=== PATIENT | female | born 1990 | race Caucasian/White ===

== ENCOUNTER 2024-08-24 18:29 | Emergency (ER) | payer BC, SELFPAY ==
[2024-08-24] VITALS (16 sets, daily range): BP systolic 114–126; BP diastolic 63–80; PULSE 75–76; RESP 16; TEMP 36.7–37.2; O2SAT 98–100
--- OUTSIDE RECORDS SUMMARY | 2024-08-24 18:31 | XMS_ITS | Clinical Summary ---
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 Gender Identity Not on file Sexual Orientation Not on file Plan of Treatment Health Maintenance Due Date Last Done Comments Cervical Cancer Screening Pa p Smear (Age 30 to 64) Every 3 Years 1989 Annual Physical 1992 Hepatitis C 09/01/2007 DTaP, Tdap and Td Vaccines ( 1 - Tdap) 2008 Hepatitis B Vaccines (1 of 3 - 19+ 3-dose series) 2008 Cervical Cancer Screening Pa p with HPV Testing (Age 30 to 64) Every 5 Years 09/01/2019 Cervical Cancer Screening with HPV 09/01/2019 COVID-19 Vaccine (2023-2 5 season) 2023 HPV Vaccines Aged Out No longer eligi ble based on patient's age to complete this topic Meningococcal B Vaccine Aged Out No l onger eligible based on patient's age to complete this topic Meningococcal Vaccine Aged Out No doug kim eligible based on patient's age to complete this topic Pneumococcal Vaccine: Pediat rics (0 to 5 Years) and At-Risk Patients (6 to 49 Years) Aged Out No longer eligible b ased on patient's age to complete this topic RSV Immunizations Under 20 Months Aged Out No longer eligible based on patient's age to complete this topic
--- OUTSIDE RECORDS SUMMARY | 2024-08-24 18:31 | XMS_ITS | Encounter Summary ---
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
--- NOTE | 2024-08-24 18:47 | ED_ITS ---
HPI - General Adult General Chief complaint: Headache Stated complaint: migraine Time Seen by Provider: 08/24/24 18:40 History of Present Illness HPI narrative: Patient 33-year-old female presents emergency department chief complaint of migraine. The patient reports that she is approximately 8 weeks normally takes sumatriptan and reports she has been having nausea vomiting photophobia and increased pain with sounds the patient states that she called the OB senior construction project manager who said that she could only take Tylenol and reports that this is 1 of the worst headache she has ever had the patient reports that she has no focal neurological deficits reports this is not the worst headache of her life but it is one of her more severe ones Related Data Allergies Allergy/AdvReac Type Severity Reaction Status Date / Time No Known Allergies Allergy Unknown Unverified 12/26/06 19:31 Review of Systems Review of Systems: A 10 system review of systems was completed on the patient and is negative except for what is stated in the HPI. Nursing and ancillary documentation was reviewed. Exam Narrative: GENERAL: Well-appearing, well-nourished, and in no moderate acute pain distress. HEAD: Normocephalic, atraumatic. EYES: PERRLA and EOMI. ENT: Nares clear, no rhinorrhea or epistaxis. Mucous membranes moist. NECK: Supple. CHEST: Clear to auscultation. No respiratory distress. HEART: Regular rate and rhythm. No murmur heard. Normal peripheral pulses. ABDOMEN: Soft, nontender, nondistended, normal active bowel sounds. EXTREMITIES: Normal range of motion. No edema. SKIN: Warm, dry, no rash. NEURO: No focal deficits. Alert and oriented x3. PSYCH: Normal mood and affect. Course Vital Signs Vital signs: Vital Signs Temperature 37.2 C 08/24/24 18:34 Pulse Rate 75 08/24/24 18:34 Respiratory Rate 16 08/24/24 18:34 Blood Pressure 126/80 08/24/24 18:34 Pulse Oximetry 100 08/24/24 18:34 Temperature 37.2 C 08/24/24 18:34 Pulse Rate 75 08/24/24 18:34 Respiratory Rate 16 08/24/24 18:34 Blood Pressure 126/80 08/24/24 18:34 Pulse Oximetry 100 08/24/24 18:34 Medical Decision Making Vital Signs Vital Signs: Vital Signs Temperature 37.2 C 08/24/24 18:34 Pulse Rate 75 08/24/24 18:34 Respiratory Rate 16 08/24/24 18:34 Blood Pressure 126/80 08/24/24 18:34 Pulse Oximetry 100 08/24/24 18:34 Temperature 37.2 C 08/24/24 18:34 Pulse Rate 75 08/24/24 18:34 Respiratory Rate 16 08/24/24 18:34 Blood Pressure 126/80 08/24/24 18:34 Pulse Oximetry 100 08/24/24 18:34 Discharge Plan Discharge Clinical Impression: Headache Patient Disposition: Home Condition: Stable Instructions: Antibiotic Form, Acute Headache (ED) Patient Language: Armenian Follow-up/Referrals: UNKNOWN,DOCTOR [Primary Care Provider] - Time of Disposition: 19:44
[2024-08-24] MEDS: SODIUM CHLORIDE 0.9% IV 1,000 ML 999 ML IV CONT (18:58)
[2024-08-24] MEDS: dexAMETHasone SOD PHOS INJ 10 MG/ML 1 ML VIAL IV PUSH (19:02)
[2024-08-24] MEDS: METOCLOPRAMIDE HCL INJ 10 MG/2 ML VIAL IV PUSH (19:04)
[2024-08-24] MEDS: MAGNESIUM SULF 1 GM/D5W 100 ML 1 GM/100 ML BAG IVPB (19:13)
--- OUTSIDE RECORDS SUMMARY | 2024-08-24 19:29 | XMS_ITS | Encounter Summary ---
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
--- OUTSIDE RECORDS SUMMARY | 2024-08-24 19:29 | XMS_ITS | Clinical Summary ---
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
== END 2024-08-24 21:37 | disposition home or self-care (01) ==
PROVIDERS: Emergency Provider Emergency Medicine
DX: O26.891 Other specified pregnancy related conditions, first trimester (principal); R51.9 Headache, unspecified; Z3A.08 8 weeks gestation of pregnancy
CPT/HCPCS: 96365; 96375; 99284; J1100; J1200; J2765; J3475; J7030

== ENCOUNTER 2024-08-27 10:45 | Outpatient (CLI) | payer BC, SELFPAY ==
--- NOTE | ~2024-08-27 | US_ITS ---
Pelvic ultrasound. Clinical History: First trimester , establish dates and viability Technique: Realtime transabdominal and transvaginal scanning of the pelvis was performed. Color flow Doppler and Doppler spectral analysis were performed. Findings: The uterus is retroverted, and contains an intrauterine gestation. With crown-rump length o f 1.1 cm corresponds to an estimated gestational age of 7 weeks 1 day. heart rate is 143 bpm. Neither ovary seen. No adnexal mass seen. There is no evidence of free fluid in the cul de sac. Impression: Live intrauterine gestation, with estimated gestational age of 7 weeks 1 day. heart rate is 143 bpm. Sonographic DANDRE is 04/15/2025. Reviewed, dictated and finalized at location [facility]. Impression: Live intrauterine gestation, with estimated gestational age of 7 weeks 1 day. F etal heart rate is 143 bpm. Sonographic DANDRE is 04/15/2025.
== END 2024-08-27 10:46 | disposition home or self-care (01) ==
PROVIDERS: PCP Nurse Practitioner Family; Visit Provider Nurse Practitioner Family
DX: O36.80X0 Pregnancy with inconclusive fetal viability, not applicable or unspecified (principal); Z3A.01 Less than 8 weeks gestation of pregnancy
CPT/HCPCS: 76801; 76817

== ENCOUNTER 2024-09-03 13:30 | Outpatient (CLI) | payer BC, SELFPAY ==
--- NOTE | ~2024-09-03 | US_ITS ---
Pelvic ultrasound. Clinical History: First trimester , establish dates and viability Technique: Realtime transabdominal and transvaginal scanning of the pelvis was performed. Color flow Doppler and Doppler spectral analysis were performed. Findings: The uterus is retroverted, and contains an intrauterine gestation. [place]-rump length of 1.8 cm corresponds to an estimated gestational age of 8 weeks 1 day. heart rate is 157 bpm. The right ovary measures 3.0 x 2.7 x 3.5 cm. No significant right ovarian or adnexal mass is seen. The left ovary is not visualized. No significant left ovarian or adnexal mass is seen. There is no evidence of free fluid in the cul de sac. Impression: Live intrauterine gestation, with estimated gestational age of 8 weeks 1 day. heart rate is 157 bpm. Sonographic DANDRE is 04/15/2025. Reviewed, dictated and finalized at [facility]. Impression: Live intrauterine gestation, with estimated gestational age of 8 weeks 1 day. F etal heart rate is 157 bpm. Sonographic DANDRE is 04/15/2025.
== END 2024-09-03 13:31 | disposition home or self-care (01) ==
PROVIDERS: PCP Nurse Practitioner Family; Visit Provider Nurse Practitioner Family
DX: O36.80X0 Pregnancy with inconclusive fetal viability, not applicable or unspecified (principal); Z3A.08 8 weeks gestation of pregnancy
CPT/HCPCS: 76801; 76817